=== PATIENT | female | born 1960 | race Caucasian/White ===

== ENCOUNTER 2017-11-29 21:34 | Inpatient (IN) | payer SELFPAY ==
[~2017-11-29] VITALS: Ht 157.5 cm; Wt 62.8 kg
[2017-11-29 21:43] VITALS: BP 156/85
--- NOTE | 2017-11-29 21:47 | NUR ---
TO LOBBY AMB, V/S STABLE , A/W FOR BED, JOSE DANIEL NOTED
[2017-11-30 00:34] LABS: BASOPHILS # (AUTO) 0.1 K/uL (0.00-0.22); BASOPHILS % (AUTO) 1.1 % (0.0-2.0); EOSINOPHILS # (AUTO) 0.1 K/uL (0-0.4); EOSINOPHILS % (AUTO) 0.7 % (0.0-4.0); HEMATOCRIT 39.2 % (36-48); HEMOGLOBIN 13.1 g/dL (12.0-16.0); LYMPHOCYTES # (AUTO) 1.5 K/uL (2.5-16.5); LYMPHOCYTES % (AUTO) 12.9 % (20.5-51.1); MEAN CORPUSCULAR HEMOGLOBIN 29 pg (27-31); MEAN CORPUSCULAR HGB CONC 33 g/dL (33-37); MEAN CORPUSCULAR VOLUME 88 fL (80-94); MONOCYTES # (AUTO) 0.6 K/uL (0.8-1.0); MONOCYTES % (AUTO) 5.1 % (1.7-9.3); NEUTROPHILS # (AUTO) 9.5 K/uL (1.8-7.7); NEUTROPHILS % (AUTO) 80.2 % (42.2-75.2); PLATELET COUNT (AUTO) 358 K/uL (140-450); RED BLOOD CELL COUNT(AUTO) 4.48 MIL/uL (4.20-5.40); RED CELL DISTRIBUTION WIDTH 12.4 % (11.6-13.7); WHITE BLOOD COUNT (AUTO) 11.8 K/uL (4.8-10.8)
[2017-11-30 00:52] LABS: ALBUMIN 3.7 g/dL (3.4-5.0); ANION GAP 10.4 (8-16); CARBON DIOXIDE 32.4 mmol/L (21-32); CREATININE 0.8 mg/dL (0.6-1.3); POTASSIUM 3.8 mmol/L (3.5-5.1); TOTAL BILIRUBIN 0.6 mg/dL (0.0-1.0)
[2017-11-30 01:15] LABS: APPEARANCE,URINE CLOUDY (CLEAR); BILIRUBIN,URINE NEGATIVE (NEGATIVE); BLOOD, URINE TRACE-I (NEGATIVE); COLOR,URINE YELLOW (YELLOW); LEUKOCYTE ESTERASE ,URINE NEGATIVE (NEGATIVE); NITRITE, URINE NEGATIVE (NEGATIVE); PH,URINE 8.5 (5.0-9.0); UGLUCOSE NEGATIVE (NEGATIVE)
[2017-11-30 01:29] LABS: RBC,URINE 0-5 (RARE) /HPF (0-5)
--- NOTE | 2017-11-30 02:55 | NUR ---
PT TAKEN TO BED 3
--- NOTE | 2017-11-30 03:00 | NUR ---
57Y/F PT. PRESENTS TO ED WITH C/O EPIGASTRIC PAIN X 1 MONTH ON AND OFF. AAO X4, AMBULATORY WITH STEADY GAIT. RESPIRATIONS ROOM AIR, EVEN AND UNLABORED. ABDOMEN SOFT, NON TENDER, ACTIVE BS X4. VSS, NO S/SX OF DISTRESS AT THIS TIME. ER MD MADE AWARE OF PT. STATUS.
--- NOTE | 2017-11-30 04:00 | NUR ---
Patient appears to be resting comfortably in bed. Vital Signs within normal limits. Respirations even and unlabored.
[2017-11-30] MEDS ORDERED: NACL 0.9% 1,000 ML IV ONE (04:45)
[2017-11-30] MEDS ORDERED: PIPERACILLIN/TAZOBACTAM 3.375 GM in DEXTROSE 5% 50 ML IV ONE ×2 (04:45→05:30)
--- NOTE | 2017-11-30 05:00 | NUR ---
US AT BEDSIDE
[2017-11-30] MEDS ORDERED: PIPERACILLIN/TAZOBACTAM 3.375 GM VIAL IV ONE (05:12)
[2017-11-30] MEDS ORDERED: NACL 0.9% 1,000 ML IV SCH (05:29)
[2017-11-30] MEDS ORDERED: ONDANSETRON 4 MG/2 ML VIAL IVP PRN ×2 (05:30→13:35)
[2017-11-30] MEDS ORDERED: ACETAMINOPHEN 325 MG TAB PO PRN (05:30)
--- NOTE | 2017-11-30 06:15 | NUR ---
PT ARRIVED VIA WHEELCHAIR, AMBULATED TO BED WITH STEADY GAIT. RECEIVED REPORT AT BEDSIDE FROM RESIDENTIAL SUBSTANCE ABUSE COUNSELOR. PT A/OX4 ON ROOM AIR. PT HAS A 18G IV TO LEFT FOREARM. PT SKIN IS INTACT. OBTAINED MRSA SWAB, TELE MONITOR APPLIED. ORIENTED PT TO UNIT AND CALL LIGHT. SAFETY PRECAUTIONS IN PLACE. DR NUÑEZ AT BEDSIDE EXPLAINING PLAN OF CARE TO PT. UPDATED BOARD. VITAL SIGNS WITHIN NORMAL LIMITS. PT IN STABLE CONDITION, NO SIGNS OF DISTRESS NOTED. BED IN LOW POSITION, CALL LIGHT WITHIN REACH. WILL CONTINUE TO MONITOR.
--- NOTE | 2017-11-30 06:15 | NUR ---
Patient will be admitted to care of DR. JACOBSON. Admited to TELEMETRY. Will go to [id number]. Belongings list completed. Report to RYAN.
[2017-11-30] MEDS ORDERED: metroNIDAZOLE 500 MG/NS PREMIX 100 ML IV SCH (06:30)
--- NOTE | 2017-11-30 07:29 | NUR ---
ENDORSED PT TO DAY SHIFT RN, IN STABLE CONDITION, FOR CONTINUITY OF CARE.
--- NOTE | 2017-11-30 07:30 | NUR ---
REPORT RECEIVED FROM COOK MANAGER NURSE, PT AWAKE ALERT, RESP EVEN UNLABORED ON ROOM AIR, SKIN WARM DRY COLOR WNL, PT DENIES PAIN OR DISCOMFORT, NO IMMEDIATE NEEDS AT THIS TIME, PLAN OF CARE REVIEWED, CALL AVILA WITHIN REACH SIDE RAILS UP, BED LOCKED IN LOW POSITION, WILL CONTINUE TO MONITOR.
[2017-11-30 07:46] LABS: PROTHROMBIN TIME 10.4 secs (10.8-13.4)
[2017-11-30 08:00] VITALS: BP 117/83
[2017-11-30 08:09] LABS: FREE T4 (FREE THYROXINE) 1.19 ng/dL (0.76-1.46); MAGNESIUM 2.2 mg/dL (1.8-2.4); PHOSPHORUS 3.9 mg/dL (2.5-4.9); THYROID STIMULATING HORMONE 1.74 uIU/mL (0.34-3.74)
[2017-11-30] MEDS: DOCUSATE SODIUM 100 MG GELCAP PO SCH ×2 (08:24→20:55)
[2017-11-30] MEDS: LACTOBACILLUS RHAMNOSUS GG 1 EACH CAP PO SCH (08:24)
--- NOTE | 2017-11-30 08:25 | NUR ---
DUE MEDS GIVEN, FLAGYL ANTIBIOTIC NOT GIVEN IN PREVIOUS SHIFT, STARTED AT HTIS TIME, PT REFUSED COLACE, STATES LAST BM YESTERDAY.
[2017-11-30 09:34] LABS: BARBITURATE, URINE NEG. ng/ml (NEG <=200); BENZODIAZEPINE, URINE NEG. ng/mL (NEG <=200); CANNABINOID, URINE NEG. ng/mL (NEG <=50); COCAINE, URINE NEG. ng/mL (NEG <=300); OPIATE, URINE NEG. ng/mL (NEG <=2000); PHENCYCLIDINE SCREEN,URINE NEG. ng/mL (NEG <=25)
[2017-11-30] MEDS: LEVOFLOXACIN 750 MG/D5W PREMIX 150 ML IV SCH (10:53)
[2017-11-30] MEDS: HYDROcodone/APAP 7.5/325 MG 1 TAB PO PRN ×2 (10:59→19:41)
--- NOTE | 2017-11-30 11:48 | NUR ---
DR BADILLO CALLED, PT CONDITION REPORTED, PT TO GO TO OR FOR LAP A[facility] PER DR BADILLO, LABS ORDERED PER TELEHPONE ORDER, PT INFORMED OF THE PLAN, PT VERBALIZED FULL UNDERSTANDING, PT CHLOROHEXADINE WIPES DONE, ALL PERSONAL ITEMS REMOVED.
[2017-11-30] MEDS: metroNIDAZOLE 500 MG/NS PREMIX 100 ML IV SCH ×3 (13:15→23:35)
--- NOTE | 2017-11-30 13:15 | NUR ---
PT TO OR WITH LEIGHANN MCDOWELL
[2017-11-30] MEDS ORDERED: LACTATED RINGERS 1,000 ML IV SCH (13:33)
[2017-11-30] MEDS ORDERED: MEPERIDINE 25 MG/ML SYR IVP PRN (13:35)
[2017-11-30] MEDS ORDERED: diphenhydrAMINE 50 MG/ML VIAL IVP PRN (13:35)
[2017-11-30] MEDS ORDERED: HYDROmorphone PFS 2 MG/ML SYR IVP PRN (13:35)
[2017-11-30] MEDS ORDERED: MIDAZOLAM 2 MG/2 ML VIAL ONE (13:47)
[2017-11-30] MEDS ORDERED: fentaNYL 0.05 MG/ML VIAL ONE (13:47)
[2017-11-30] MEDS ORDERED: MEPERIDINE 50 MG/ML SYR ONE (13:48)
[2017-11-30] MEDS ORDERED: BUPIVACAINE-MPF 0.25% 30 ML VIAL INJ ONE (13:49)
[2017-11-30] MEDS ORDERED: PROPOFOL 200 MG/20 ML VIAL IV ONE (13:55)
[2017-11-30] MEDS ORDERED: ROCURONIUM 50 MG/5 ML VIAL IV ONE (13:55)
[2017-11-30] MEDS ORDERED: SUCCINYLCHOLINE CHLORIDE 200 MG/10 ML VIAL IVP ONE (13:55)
[2017-11-30] MEDS ORDERED: SEVOFLURANE 250 ML BTL INH ONE (13:55)
[2017-11-30] MEDS ORDERED: ONDANSETRON 4 MG/2 ML VIAL ONE (13:55)
[2017-11-30] MEDS ORDERED: NEOSTIGMINE 1:1000 10 MG/10 ML VIAL ONE (13:55)
[2017-11-30] MEDS ORDERED: DEXAMETHASONE 4 MG/ML VIAL ONE (13:55)
[2017-11-30] MEDS ORDERED: MEPERIDINE 25 MG/ML SYR ONE (16:28)
[2017-11-30 16:45] VITALS: BP 128/72
--- NOTE | 2017-11-30 16:45 | NUR ---
PT BACK FROM OR TO BED 111B, PT SLEEPY BUT AROUSABLE, SPEAKS CLEARLY, RESP EVEN UNLABORED ON ROOM AIR, VS STABLE, IV SITE CLEAR, ABD SURGICAL WOUND, OPEN TO AIR, WELL APPROXIMATED WITH DERMABOND, NO BLEEDING, REDNESS OR SWELLING NOTED, ABD SOFT, NON DISTENDED, REPORT RECIEVED FROM LEIGHANN MCDOWELL, PT'S FAMILY AT BEDSIDE, CALL BELLWITHIN REACH, SIDE RAILS UP, WILL CONTINUE TO MONITOR/
[2017-11-30] MEDS: DEXT 5% / NACL 0.45% 1,000 ML IV SCH ×2 (17:50→23:35)
--- NOTE | 2017-11-30 18:02 | NUR ---
PT SITTING UP TAKING CLEAR LIQ WELL, DENIES N/V, REPORTS PAIN ONLY MINIMAL AND TOLERABLE, FAMILY AT BEDSIDE, CALL AVILA WITHIN REACH, SIDE RAILS UP, WILL CONTINUE TO MONITOR.
--- NOTE | 2017-11-30 19:09 | NUR ---
REPORT GIVEN TO CASHIER GENERAL NURSE OPAL RN, PT IN STABLE CONDITION.
--- NOTE | 2017-11-30 19:30 | NUR ---
RECEIVED PT IN STABLE CONDITION FROM AM NURSE. AWAKE,ALERT AND ORIENTED X4. ON TELE MONITOR. S/P LAP AMAURY WITH X4 ABDOMINAL INCISIONS WITH DERMA BAND DRESSING. DRY AND INTACT , NO BLEEDING NOTED. HAS IVF INFUSING WELL ON THE LT FA#[id number]. HAS BEEN AMBULATING TO BATHROOM, VOIDING. C/O PAIN . WILL MEDICATE ORDERED. PLAN OF CARE DISCUSSED AND VERBALIZED UNDERSTANDING. CALL LIGHT PLACED WITHIN EASY REACH. WILL CONTINUE TO MONITOR,.
[2017-11-30 19:40] VITALS: BP 135/75
--- NOTE | 2017-11-30 22:00 | NUR ---
PT IS AWAKE, BUT NO C/O OF ANY DISCOMFORT NOR PAIN NOTED. WILL CONTINUE TO MONITOR.
[2017-12-01 00:15] VITALS: BP 120/71
--- NOTE | 2017-12-01 02:00 | NUR ---
MADE ROUNDS . PT IS ASLEEP. NO S/S OF ANY DISCOMFORT NOTED.
[2017-12-01 04:20] VITALS: BP 116/68
[2017-12-01] MEDS: HYDROcodone/APAP 7.5/325 MG 1 TAB PO PRN ×2 (04:28→09:48)
--- NOTE | 2017-12-01 05:28 | NUR ---
MEDICATED X2 FOR MODERATE POST OF PAIN DURING THE NIGHT.
[2017-12-01] MEDS: metroNIDAZOLE 500 MG/NS PREMIX 100 ML IV SCH ×2 (05:37→12:46)
[2017-12-01] MEDS: LEVOFLOXACIN 750 MG/D5W PREMIX 150 ML IV SCH (06:24)
--- NOTE | 2017-12-01 07:15 | NUR ---
ENDORSED PT IN STABLE CONDITION TO AM NURSE.
--- NOTE | 2017-12-01 07:20 | NUR ---
REPORT RECEIVED FROM PRODUCT PROMOTER SALES PERSON, PT SLEEPING QUIETLY IN NAD, RESP EVEN UNLABORED ON ROOM AIR, SKIN WARM DRY COLOR WNL, PT AROUSED EASILY, NO C/O PAIN OR DISCOMFORT, PT STATES NORCO HELPED REDUCE PAIN, PLAN OF CARE REVIEWED, ABD SOFT, SURGICAL WOUNDS WELL APPROXIMATED WITH DERMABOND, MENA, NO REDNESS, NO SWELLING, NO BLEEDING NOTED, SIDE RAILS UP X2, BED LOCKED IN LOW POSITION, CALL AVILA WITHIN REACH, WILL CONTINUE TO MONITOR.
[2017-12-01 07:27] LABS: BASOPHILS # (AUTO) 0.1 K/uL (0.00-0.22); BASOPHILS % (AUTO) 1.5 % (0.0-2.0); EOSINOPHILS % (AUTO) 0.2 % (0.0-4.0); HEMATOCRIT 33.8 % (36-48); HEMOGLOBIN 11.4 g/dL (12.0-16.0); LYMPHOCYTES # (AUTO) 2.2 K/uL (2.5-16.5); LYMPHOCYTES % (AUTO) 25.6 % (20.5-51.1); MEAN CORPUSCULAR HEMOGLOBIN 30 pg (27-31); MEAN CORPUSCULAR HGB CONC 34 g/dL (33-37); MEAN CORPUSCULAR VOLUME 88 fL (80-94); MONOCYTES # (AUTO) 0.5 K/uL (0.8-1.0); MONOCYTES % (AUTO) 6.5 % (1.7-9.3); NEUTROPHILS # (AUTO) 5.6 K/uL (1.8-7.7); NEUTROPHILS % (AUTO) 66.2 % (42.2-75.2); PLATELET COUNT (AUTO) 315 K/uL (140-450); RED BLOOD CELL COUNT(AUTO) 3.86 MIL/uL (4.20-5.40); RED CELL DISTRIBUTION WIDTH 12.4 % (11.6-13.7); WHITE BLOOD COUNT (AUTO) 8.4 K/uL (4.8-10.8)
[2017-12-01 07:54] LABS: ALBUMIN 2.9 g/dL (3.4-5.0); ANION GAP 9.6 (8-16); CARBON DIOXIDE 29.2 mmol/L (21-32); CREATININE 0.7 mg/dL (0.6-1.3); POTASSIUM 3.8 mmol/L (3.5-5.1); TOTAL BILIRUBIN 0.3 mg/dL (0.0-1.0)
[2017-12-01 07:59] LABS: MAGNESIUM 1.8 mg/dL (1.8-2.4); PHOSPHORUS 4.2 mg/dL (2.5-4.9)
[2017-12-01 08:00] VITALS: BP 120/73
[2017-12-01] MEDS: DOCUSATE SODIUM 100 MG GELCAP PO SCH (09:45)
[2017-12-01] MEDS: LACTOBACILLUS RHAMNOSUS GG 1 EACH CAP PO SCH (09:45)
--- NOTE | 2017-12-01 09:50 | NUR ---
C/O 6/10 ABD PAIN, NORCO AND DUE MEDS GIVEN, PT DENIES N/V, ANTONELLA CLEAR LIQ WELL, PT ENCOURAGED TO AMBULATE AND USE INCENTIVE SPIROMETER WHEN PAIN SUBSIDE. PT VERBALIZED FULL UNDERSTANDING. WILL CONTINUE TO MONITOR.
--- NOTE | 2017-12-01 10:11 | NUR ---
PATIENT HAS BEEN SCREENED AND CATEGORIZED MODERATE NUTRITION RISK. PATIENT WILL BE SEEN WITHIN 3-5 DAYS OF ADMISSION. 12/02/17-12/04/[address]
--- NOTE | 2017-12-01 12:02 | NUR ---
PT UP AMBULATING AROUND THE HALLWAY WITH STEADY GAIT, SMILING, TOLERATING WELL, PT REPORTS HAVING PASSED GAS TODAY. WILL CONTINUE TO MONTIOR.
[2017-12-01] MEDS ORDERED: DOCU-299 PO (12:28)
[2017-12-01] MEDS ORDERED: ONDA4TAB PO (12:29)
[2017-12-01] MEDS ORDERED: ACET-2869 PO (12:29)
[2017-12-01] MEDS ORDERED: SIME80CT70 PO (12:29)
[2017-12-01] MEDS: DEXT 5% / NACL 0.45% 1,000 ML IV SCH (12:51)
[2017-12-01 14:00] VITALS: BP 118/70
--- NOTE | 2017-12-01 14:05 | NUR ---
DC INSTRUCTION AND RX GIVEN AND EXPLAINED TO PT, PT VERBALIZED FULL UNDERSTANDING, PHOTO TAKEN OF ABD SURGICAL WOUNDS, IV DC'D, CATH TIP INTCT BLEEDING CONTROLLED, PT ANTONELLA WELL, PT DENIES PAIN OR DISCOMFORT, PT TOLERATED REGULAR DIET LUNCH WITHOUT N/V, AWAITING FAMILY TO TAKE HER HOME. WILL CONTINUE TO MONITOR.
== END 2017-12-01 14:40 | disposition home or self-care (01) | DRG 418 ==
LOC: MED 21:34 → MTU 11-30 04:56
PROVIDERS: ADMIT Student in an Organized Health Care Education/Training Program; ATTEND Student in an Organized Health Care Education/Training Program
PROC: 0FT44ZZ Resection of Gallbladder, Percutaneous Endoscopic Approach (ICD-10-PCS; principal; 2017-11-30 13:15)
DX: K80.62 Calculus of gallbladder and bile duct with acute cholecystitis without obstruction (principal); E44.0 Moderate protein-calorie malnutrition; I10 Essential (primary) hypertension; M19.91 Primary osteoarthritis, unspecified site; K21.0 Gastro-esophageal reflux disease with esophagitis; E78.5 Hyperlipidemia, unspecified
CPT/HCPCS: 36415; 76705; 80053; 80305; 81001; 82150; 83036; 83690; 83735; 83880; 84100; 84439; 84443; 84484; 84702; 84703; 85025; 85610; 85730; 86886; 86900; 86901; 87081; 87086; 96361; 96365; 99285; J0330; J1100; J1956; J2175; J2250; J2405; J2543; J2704; J2710; J3010; J3490; J7030; J7060; Q0092